=== PATIENT | female | born 1975 | race Caucasian/White ===

== ENCOUNTER 2023-09-02 14:57 | Outpatient (CLI) | payer BC, SELFPAY ==
--- NOTE | 2023-09-02 15:00 | CRLHL7_ITS ---
For Patients: As a result of the Century Cures Act, medical imaging exams and procedure reports are released immediately into your electronic medical record. You may view this report before your referring provider. If you have questions, please contact your health care provider. Indication: chronic sinusitis Technique: Performed without IV contrast Comparison: 02/26/2017 Findings: Frontal sinuses: Clear. Ethmoid sinuses: Clear. Maxillary sinuses: 1.3 cm mucous retention cyst inferior left maxillary sinus. Clear right maxillary sinus. The maxillary sinus drainage pathways are patent on both sides. Sphenoid sinuses: Mucous is present within the left sphenoid sinus. Patent sphenoethmoidal recesses. Nasal Cavity: Rightward curvature of the anterior nasal septum. Slight paradoxical turn of the nasal turbinates. No nasal polyps. No TMJ abnormalities identified. The visualized portions of the orbits, intracranial contents and upper soft tissue neck are grossly negative. Mild secretions are present within the posterior nasopharynx. Impression: 1. Mild left sphenoid and left maxillary sinus disease. 2. Anterior rightward curvature nasal septum. Please note that all CT scans at this facility use dose modulation, iterative reconstruction, and/or weight-based dosing when appropriate to reduce radiation dose to as low as reasonably achievable. Dictated by Chan Ascencio MD @ 09/03/2023 9:17:37 AM (Electronically Signed)
== END 2023-09-02 14:58 | disposition home or self-care (01) ==
LOC: CT 14:57
PROVIDERS: PCP Family Medicine; Visit Provider Otolaryngology
DX: J32.9 Chronic sinusitis, unspecified (principal); J32.0 Chronic maxillary sinusitis; J34.2 Deviated nasal septum
CPT/HCPCS: 70486

== ENCOUNTER 2024-06-22 16:34 | Outpatient (CLI) | payer BC, SELFPAY ==
--- NOTE | 2024-06-22 16:45 | CRLHL7_ITS ---
For Patients: As a result of the Century Cures Act, medical imaging exams and procedure reports are released immediately into your electronic medical record. You may view this report before your referring provider. If you have questions, please contact your health care provider. INDICATION: Chronic sinusitis TECHNIQUE: Volumetric helical scanning of the paranasal sinuses was performed without contrast material. Sagittal and coronal reconstructions were also obtained. COMPARISON: Paranasal sinus CT of 09/02/2023 FINDINGS: The paranasal sinuses and nasal fossa are clear except for mucous in the left sphenoid sinus. The osteomeatal complexes and sphenoethmoidal recesses are clear. Mild rightward deviation of the anterior-mid nasal septum is again noted. The temporal bones are grossly negative. IMPRESSION: 1. Essentially negative CT of the paranasal sinuses. 2. Mild rightward deviation of the anterior-mid nasal septum. Please note that all CT scans at this facility use dose modulation, iterative reconstruction, and/or weight-based dosing when appropriate to reduce radiation dose to as low as reasonably achievable. Dictated by Jamarcus Kate MD @ 06/24/2024 8:17:23 AM (Electronically Signed)
== END 2024-06-22 16:35 | disposition home or self-care (01) ==
LOC: CT 16:35
PROVIDERS: PCP Physician Assistant Medical; Visit Provider Otolaryngology
DX: J32.9 Chronic sinusitis, unspecified (principal); J34.2 Deviated nasal septum
CPT/HCPCS: 70486

== ENCOUNTER 2024-07-28 08:56 | Day surgery (SDC) | payer BC, SELFPAY ==
[2024-07-28] VITALS (12 sets, daily range): BP systolic 120–130; BP diastolic 75–87; PULSE 80–95; RESP 14–20; TEMP 36.4–36.6; O2SAT 96–99; BMI 31.0
[2024-07-28] MEDS: 0.9 % SODIUM CHLORIDE 500 ML 500 ML 100 ML IV (09:00)
[2024-07-28] MEDS: OXYMETAZOLINE 0.05% NASAL SPRAY 2 SPRAY NOSTRIL-B (09:10)
[2024-07-28 09:34] LABS: Ur HCG Qualitative* Negative (Negative)
[2024-07-28] MEDS: SODIUM CHLORIDE 0.9 % (FLUSH) 10 ML SYRINGE IVF (09:42)
--- NOTE | 2024-07-28 10:05 | W.ANESCHARGE ---
Anesthesia Charges Start Date/Time Anesthesia Start Date: 07/28/24 Anesthesia Start Time: 10:20 Stop Date/Time Anesthesia Stop Date: 07/28/24 Anesthesia Stop Time: 10:55
[2024-07-28] MEDS: BUPIVACAINE 0.5%/EPINEPHRINE 0.9 MG (30.9 ML) INJECTION (10:35)
[2024-07-28] MEDS: AYR SALINE NASAL GEL 1 APPLIC NOSTRIL-B (10:36)
[2024-07-28] MEDS: MUPIROCIN 1 GM PACKET 1 APPLIC TOPICAL (10:36)
[2024-07-28] MEDS: COCAINE HCL 4 % 4 ML SOLUTION NOSTRIL-B (10:36)
--- NOTE | 2024-07-28 10:40 | W.PM.ENTPROC ---
Procedure Note Date of procedure: 07/28/24 Procedure: Preop diagnosis nasal obstruction, bilateral inferior turbinate hypertrophy, nasal headache, mild septal deviation status post previous septoplasty Postoperative diagnosis same Procedure revision septoplasty, intramural cautery inferior turbinates bilateral Under general trach anesthesia patient was prepped and draped in usual fashion the nose was decongested injected. Incision was made in the septal mucosa and area 3 4 elevating the mucosa over the small bony deflection. Mucosa on either side of this was elevated in the bony deflection was removed straightened and returned to intraseptal space. Positive pack was placed on either side of the left middle turbinate a effectively compressing the incision. The in both inferior turbinates were outfractured. The turbinate Wand was used to cauterize intramurally at the anterior head inferior 10% of the left and right inferior turbinates. The patient procedure well was taken recovery in satisfactory condition blood loss was 10 mL. Surgeon: Herbie De Luna MD
--- NOTE | 2024-07-28 10:53 | W.ANESCHARGE ---
Anesthesia Charges Start Date/Time Anesthesia Start Date: 07/28/24 Anesthesia Start Time: 10:20 Stop Date/Time Anesthesia Stop Date: 07/28/24 Anesthesia Stop Time: 10:55
== END 2024-07-28 12:39 | disposition home or self-care (01) ==
PROVIDERS: Anesthesiology; PCP Physician Assistant Medical; Visit Provider Otolaryngology
PROC: (CPT 30520; principal; 2024-07-28 10:15)
DX: J34.2 Deviated nasal septum (principal); J34.3 Hypertrophy of nasal turbinates; J34.89 Other specified disorders of nose and nasal sinuses; R51.9 Headache, unspecified
CPT/HCPCS: 30520; 30802; 00160; 81025; A9270; J0330; J1100; J2250; J2405; J2704; J3010; J7030